=== PATIENT | male | born 1975 | race Caucasian/White ===

== ENCOUNTER → 2019-08-27 | Day surgery (SDC) | payer OTHER ==
--- NOTE | 2019-08-27 16:36 | RADIOLOGY REPORT (SQ) ---
EXAM DESCRIPTION: ARTHRO SHOULDER INJECTION; FLUORO/NEEDLE PLACEMENT COMPLETED DATE/TIME: 08/27/2019 3:08 pm; 08/27/2019 3:10 pm REASON FOR STUDY: M25.511 PAIN IN RIGHT SHOULDER, S49.91XA UNSP INJURY OF RIGHT SHOULDER AND S49.91X A UNSP INJURY OF RIGHT SHOULDER AND UPPER ARM, INIT E COMPARISON: None. FLUOROSCOPY TIME: 0.2 minutes. 1 image submitted to PACS. LIMITATIONS: None. PROCEDURE: Procedure, risks, benefits and alternatives were explained to the patient who then gave w ritten consent. The right shoulder was then marked and a time out was called for correct procedure ve rification. A posterior entry site was subsequently marked utilizing fluoroscopic guidance. The bev ulder was then prepped and draped utilizing standard sterile technique. Next the selected access sit e was anesthetized with 1% lidocaine. A hypodermic needle was then introduced into the joint space un tootie direct fluoroscopic guidance. Non-ionic contrast was instilled to confirm intra-articular positio n. Dilute gadolinium solution was then injected. Afterwards the needle was removed and the entry sit e was covered with a sterile bandage. There were no immediate complications. TECHNIQUE: Digital images acquired during fluoroscopy and stored on PACS. Patient immediately take n to the MR suite for additional imaging. INJECTION LOCATION: Posterior left shoulder. CONTRAST TYPE AND AMOUNT: 12 mL Dotarem/Saline mixture. IMPRESSION: SUCCESSFUL NEEDLE PLACEMENT AND INJECTION FOR RIGHT SHOULDER MR ARTHROGRAM USING POSTERI OR APPROACH. COMMENT: Quality ID 145: Final reports for procedures using fluoroscopy that document radiation exp osure indices, or exposure time and number of fluorographic images (if radiation exposure indices are not available) TECHNICAL DOCUMENTATION: JOB ID: [id number] 2010 [employer]- All Rights Reserved Reading location - IP/workstation name: [email or web address]
--- NOTE | 2019-08-27 16:36 | RADIOLOGY REPORT (SQ) ---
EXAM DESCRIPTION: ARTHRO SHOULDER INJECTION; FLUORO/NEEDLE PLACEMENT COMPLETED DATE/TIME: 08/27/2019 3:08 pm; 08/27/2019 3:10 pm REASON FOR STUDY: M25.511 PAIN IN RIGHT SHOULDER, S49.91XA UNSP INJURY OF RIGHT SHOULDER AND S49.91X A UNSP INJURY OF RIGHT SHOULDER AND UPPER ARM, INIT E COMPARISON: None. FLUOROSCOPY TIME: 0.2 minutes. 1 image submitted to PACS. LIMITATIONS: None. PROCEDURE: Procedure, risks, benefits and alternatives were explained to the patient who then gave w ritten consent. The right shoulder was then marked and a time out was called for correct procedure ve rification. A posterior entry site was subsequently marked utilizing fluoroscopic guidance. The bev ulder was then prepped and draped utilizing standard sterile technique. Next the selected access sit e was anesthetized with 1% lidocaine. A hypodermic needle was then introduced into the joint space un tootie direct fluoroscopic guidance. Non-ionic contrast was instilled to confirm intra-articular positio n. Dilute gadolinium solution was then injected. Afterwards the needle was removed and the entry sit e was covered with a sterile bandage. There were no immediate complications. TECHNIQUE: Digital images acquired during fluoroscopy and stored on PACS. Patient immediately take n to the MR suite for additional imaging. INJECTION LOCATION: Posterior left shoulder. CONTRAST TYPE AND AMOUNT: 12 mL Dotarem/Saline mixture. IMPRESSION: SUCCESSFUL NEEDLE PLACEMENT AND INJECTION FOR RIGHT SHOULDER MR ARTHROGRAM USING POSTERI OR APPROACH. COMMENT: Quality ID 145: Final reports for procedures using fluoroscopy that document radiation exp osure indices, or exposure time and number of fluorographic images (if radiation exposure indices are not available) TECHNICAL DOCUMENTATION: JOB ID: [id number] 2010 [employer]- All Rights Reserved Reading location - IP/workstation name: [email or web address]
--- NOTE | 2019-08-27 16:57 | RADIOLOGY REPORT (SQ) ---
EXAM DESCRIPTION: MRI RT UPPER JOINT WITH COMPLETED DATE/TIME: 08/27/2019 3:49 pm REASON FOR STUDY: M25.511 PAIN IN RIGHT SHOULDER, S49.91XA UNSP INJURY OF RIGHT SHOULDER AND S49.91X A UNSP INJURY OF RIGHT SHOULDER AND UPPER ARM, INIT E COMPARISON: None. TECHNIQUE: Right post arthrogram MRI shoulder images acquired and stored on PACS. Multiplanar imagin g to include fat sensitive sequences such as T1, water sensitive sequences such as FST2/STIR, cartila ge sensitive sequences such as FSPD/gradient-echo sequences. LIMITATIONS: None. FINDINGS: BONE MARROW AND CORTEX: No worrisome bone lesions or marrow replacement. No occult fractur es. 5 mm subcortical cyst right humeral head at the bicipital groove on axial image /. JOINT OR BURSAL EFFUSION: Adequate distention of the joint with arthrogram contrast. No loose bodies . No leakage into the subacromial/subdeltoid bursa. GLENO-HUMERAL ARTICULATION: Normal articulation. No subluxation. No cystic change. No osteophytes or cartilage loss. ACROMION AND AC JOINT: Type 2 acromion with mild arthropathy, bony spurring synovial thickening prot ruding superiorly at joint, best shown on sagittal images 12-14. No significant narrowing of the sub acromial space. ROTATOR CUFF AND INTERVAL: There is high signal along the superficial aspect of the rotator interval and anterior supraspinatus tendon without full-thickness tear. This is best shown on sagittal images 7-15. Mild undersurface tendinopathy of the distal supraspinatus tendon and infraspinatus tendon on sagittal images 4 through 6, and coronal images 10 through 14. Subscapularis is intact. LABRUM AND BICEPS LABRAL COMPLEX: Intra-articular long head biceps tendon is thickened and high in signal from tendinopathy. No definite labral tear is identified REMAINDER OF LABRUM AND IGHL : No gross tear or paralabral cyst formation. Labral evaluation is less than optimal without joint distention. No thickening of IGHL to suggest adhesive capsulitis. PERIARTICULAR AND ADJACENT SOFT TISSUES: No masses or abnormal nodes. OTHER: No other significant finding. IMPRESSION: Undersurface tendinopathy of the distal supraspinatus and infraspinatus tendons High signal along the superficial aspect of the rotator interval without discrete tear Intra-articular long head biceps tendinopathy. No gross superior labral tear TECHNICAL DOCUMENTATION: JOB ID: [id number] 2010 [employer]- All Rights Reserved Reading location - IP/workstation name: [email or web address]
== END ==
LOC: RAD 14:35
PROVIDERS: ATTEND Orthopaedic Surgery
DX: S49.91XA Unspecified injury of right shoulder and upper arm, initial encounter (principal); X58.XXXA Exposure to other specified factors, initial encounter
CPT/HCPCS: 73222; 77002; 23350; A9576